=== PATIENT | female | born 1975 | race Two or more races ===

== ENCOUNTER 2019-03-31 05:45 | Day surgery (SDC) | payer OTHER ==
[~2019-03-31 05:45] MED LIST: IBUPROFEN400 MG PO
== END 2019-03-31 12:50 | disposition home or self-care (01) ==
LOC: CIR.AMB 05:45
DX: N84.0 Polyp of corpus uteri (principal)

== ENCOUNTER 2020-03-18 07:27 | Emergency (ER) | payer OTHER ==
[~2020-03-18] VITALS: Ht 154.9 cm; Wt 88.0 kg
[2020-03-18] MEDS ORDERED: COMPLETE NATAL1 EACH (07:33)
[2020-03-18] MEDS ORDERED: ENDOMETRIN100 MG (07:34)
== END 2020-03-18 11:36 | disposition home or self-care (01) ==
LOC: ER 07:27
DX: O46.8X2 Other antepartum hemorrhage, second trimester (principal); Z3A.15 15 weeks gestation of pregnancy

== ENCOUNTER → 2020-06-28 13:00 | Outpatient (CLI) | payer OTHER ==
[~2020-06-28 13:00] MED LIST changes: +COMPLETE NATAL1 EACH; +ENDOMETRIN100 MG
== END | disposition home or self-care (01) ==
LOC: PPH VACUNA 13:00
DX: Z23 Encounter for immunization (principal)

== ENCOUNTER 2020-08-13 13:25 | Outpatient (CLI) | payer OTHER | END 2020-08-13 14:54 | disposition home or self-care (01) | LOC: NST 13:25 | PROVIDERS: ATTEND Obstetrics & Gynecology Maternal & Fetal Medicine | DX: Z34.83 Encounter for supervision of other normal pregnancy, third trimester (principal) ==

== ENCOUNTER 2020-08-17 14:30 | Inpatient (IN) | payer OTHER ==
[~2020-08-17] VITALS: Ht 154.9 cm; Wt 3.2 kg
== END 2020-09-07 18:27 | disposition home or self-care (01) | DRG 788 ==
LOC: SURG-SUITE 09-05 06:18 → O/R 09-05 06:18 → OB/GYN 09-05 07:00 → SURG-SUITE 09-05 17:13 → LDR 09-12 14:30
PROVIDERS: ADMIT Obstetrics & Gynecology; ATTEND Obstetrics & Gynecology
PROC: 4A1HXFZ Monitoring of Products of Conception, Cardiac Rhythm, External Approach (ICD-10-PCS; 2020-09-05)
PROC: 10D00Z1 Extraction of Products of Conception, Low, Open Approach (ICD-10-PCS; principal; 2020-09-05 07:00)
DX: O33.5XX0 Maternal care for disproportion due to unusually large fetus, not applicable or unspecified (principal); O99.013 Anemia complicating pregnancy, third trimester; D64.9 Anemia, unspecified; Z3A.39 39 weeks gestation of pregnancy; Z37.0 Single live birth; Z20.828 Contact with and (suspected) exposure to other viral communicable diseases

== ENCOUNTER 2020-08-27 07:47 | Outpatient (CLI) | payer OTHER | END 2020-08-27 09:13 | disposition home or self-care (01) | LOC: NST 07:47 | PROVIDERS: ATTEND Obstetrics & Gynecology | DX: Z34.83 Encounter for supervision of other normal pregnancy, third trimester (principal) ==

== ENCOUNTER → 2020-11-30 | Outpatient (CLI) | payer OTHER | END | disposition home or self-care (01) | LOC: PPH VACUNA | DX: Z23 Encounter for immunization (principal) ==

== ENCOUNTER → 2020-12-20 15:00 | Outpatient (CLI) | payer OTHER | END | disposition home or self-care (01) | LOC: PPH VACUNA 15:00 | DX: Z23 Encounter for immunization (principal) ==

== ENCOUNTER → 2021-07-02 | Outpatient (CLI) | payer OTHER | END | disposition home or self-care (01) | LOC: PPH VACUNA 08:00 | PROVIDERS: ATTEND Emergency Medicine Pediatric Emergency Medicine | DX: Z23 Encounter for immunization (principal) ==

== ENCOUNTER 2023-12-02 05:45 | Day surgery (SDC) | payer OTHER ==
[2023-12-02] MEDS ORDERED: METRONIDAZOLE/SODIUM CHLORIDE 500 MG/100 ML PIGGYBACK IV ONE ×2 (07:40→10:00)
[2023-12-02] MEDS ORDERED: CEFTRIAXONE SODIUM 2,000 MG VIAL ONE (07:41)
[2023-12-02] MEDS ORDERED: POVIDONE-IODINE 118 ML BOTT TOP ONE ×2 (09:07→10:00)
[2023-12-02] MEDS ORDERED: DIBUCAINE 15 GM OINT..GM. TUBE ONE (09:07)
[2023-12-02] MEDS ORDERED: HEMOSTATIC MATRIX 1 KIT KIT TOP ONE ×2 (09:07→10:00)
[2023-12-02] MEDS ORDERED: BUPIVACAINE LIPOSOME/PF 266 MG/20 ML VIAL IJ ONE ×2 (09:09→10:00)
[2023-12-02] MEDS ORDERED: CEFTRIAXONE SODIUM 2,000 MG VIAL IV ONE (10:00)
[2023-12-02] MEDS ORDERED: DIBUCAINE 30 GM TUBE RECTAL ONE (10:00)
== END 2023-12-02 14:30 | disposition home or self-care (01) ==
LOC: CIR.AMB 05:45
PROVIDERS: ATTEND Colon & Rectal Surgery
DX: K64.2 Third degree hemorrhoids (principal); K60.2 Anal fissure, unspecified; K64.4 Residual hemorrhoidal skin tags; K64.8 Other hemorrhoids; Z88.6 Allergy status to analgesic agent

== ENCOUNTER 2024-06-29 09:22 | Emergency (ER) | payer OTHER ==
[~2024-06-29] VITALS: Ht 154.9 cm; Wt 83.9 kg
[2024-06-29] MEDS ORDERED: 0.9 % SODIUM CHLORIDE 1,000 ML IV STA (10:06)
[2024-06-29] MEDS ORDERED: MORPHINE SULFATE 4 MG/ML VIAL IV STA (10:06)
[2024-06-29 10:43] LABS: HEMATOCRIT 36.3 % (36.0-45.00); MEAN CELL VOLUME 83.8 fL (80.00-100.00); MEAN CORPUSCULAR HEMOGLOBIN 27.8 pg (27.00-32.0); MEAN CORPUSCULAR HGB CONC 33.2 g/dl (32.0-36.0); PLATELET COUNT 242 K/uL (150-450); RED BLOOD COUNT 4.32 M/uL (4.00-6.00); RED CELL DISTRIBUTION WIDTH 14.5 % (11.5-14.5)
[2024-06-29 11:02] LABS: CALCIUM 8.6 mg/dL (8.5-10.1); CREATININE SERUM 0.69 mg/dL (0.55-1.02); GFR 91.19; POTASSIUM 3.63 mEq/L (3.5-5.1)
[2024-06-29 11:05] LABS: INR 0.97; PARTIAL THROMBOPLASTIN TIME 32.7 SECONDS (22.0-34.0); PROTHROMBIN TIME 10.6 SECONDS (9.0-11.5)
[2024-06-29 12:17] LABS: URINE APPEARANCE Cloudy; URINE BILIRRUBIN Negative (NEGATIVE); URINE BLOOD Negative; URINE COLOR Yellow; URINE GLUCOSE Negative (NEGATIVE); URINE KETONE Negative (NEGATIVE); URINE LEUKOCYTE Negative; URINE NITRATE Negative; URINE PROTEIN Negative (NEGATIVE); URINE UROBILINOGEN 0.2 E.U./dl
[2024-06-29 12:23] LABS: URINE EPITHELIAL CELLS 3.4 uL (0.0-38.8); URINE WBC 2.1 uL (0.0-23.2)
== END 2024-06-29 15:55 | disposition home or self-care (01) ==
LOC: ER 09:24
PROVIDERS: General Practice
DX: K61.1 Rectal abscess (principal); Z88.6 Allergy status to analgesic agent
CPT/HCPCS: 36415; 74177; Q9965

== ENCOUNTER 2024-08-24 08:40 | Day surgery (SDC) | payer OTHER ==
[2024-08-22 10:25] VITALS: BP 120/79
[~2024-08-24] VITALS: Ht 154.9 cm; Wt 83.5 kg
[~2024-08-24 08:40] MED LIST changes: +ADVIL200 M1; +SULFASALAZINE500 M1 PO
[2024-08-24] MEDS ORDERED: DIBUCAINE 30 GM TUBE RECTAL ONE (14:30)
[2024-08-24] MEDS ORDERED: METRONIDAZOLE/SODIUM CHLORIDE 500 MG/100 ML PIGGYBACK IV ONE (14:30)
[2024-08-24] MEDS ORDERED: POVIDONE-IODINE 118 ML BOTT TOP ONE (14:30)
[2024-08-24] MEDS ORDERED: BUPIVACAINE LIPOSOME/PF 266 MG/20 ML VIAL IJ ONE (14:30)
[2024-08-24] MEDS ORDERED: HEMOSTATIC MATRIX 1 KIT KIT TOP ONE (14:30)
[2024-08-24] MEDS ORDERED: CEFTRIAXONE SODIUM 2,000 MG VIAL IV ONE (14:30)
== END 2024-08-24 19:55 | disposition home or self-care (01) ==
LOC: CIR.AMB 08:40
PROVIDERS: ATTEND Colon & Rectal Surgery
DX: K60.30 Anal fistula, unspecified (principal)